=== PATIENT | female | born 1965 | race Caucasian/White ===

== ENCOUNTER → 2022-04-09 | Outpatient (CLI) | payer OTHER ==
[2022-04-09 12:59] VITALS: BP 157/89; PULSE 75; RESP 16; TEMP 98.8; BMI 27.8
--- NOTE | 2022-04-09 13:13 | P.BASOAP ---
Subjective Progress Note Date: 04/09/22 Principal diagnosis: Dysphagia, pain 56-year-old female known to our service. Patient had lap band placed 2003. She has had a few episodes over the years were the band was too tight and had to be emptied. Starting 9 days ago the patient says she over 8 and had epigastric pain and pain around her port site. This seemed to be gradually improving but then became more severe in the last few days. Patient also had some belching and feels like the band is too tight. No vomiting. No fevers. No changes today. Cover skin. Patient has had no prior revisions. Objective - Vital Signs Vital signs: Vital Signs Temp 98.8 F 04/09/22 12:54 Pulse 75 04/09/22 12:54 Resp 16 04/09/22 12:54 BP 157/89 04/09/22 12:54 Pulse Ox FiO2 Intake & Output 04/08/22 04/09/22 04/09/22 18:59 06:59 18:59 Weight 73.482 kg - Exam Abdomen: Soft, nondistended, mild tenderness at port site, no erythema Assessment/Plan (1) Morbid obesity Narrative/Plan: 56-year-old female with pain at port site and increased belching. Will empty band at this time. Following that would like to proceed with CT abdomen with contrast. Further decision regarding upper GI, EGD, or band removal will take place following that. The patient's lap band port was palpated. The site was aseptically prepped. The Torres needle was advanced into the port. A total of 0.8 ml of fluid was removed. Band is now empty. Pressure was held and a sterile dressing was applied. Plan: Date: 04/09/22 Initial Weight: 129.727 kg Initial BMI: 49.1 Current Weight: 73.482 kg Current BMI: 27.8 Type of Surgery: Adjustable Gastric Banding Total Volume in Band: Previous Volume: Volume Removed: Volume Added: Band Size:
== END ==
LOC: BARWHC3 12:40 → MERGE 12:40
PROVIDERS: ATTEND Surgery
DX: E66.01 Morbid (severe) obesity due to excess calories (principal); Z98.84 Bariatric surgery status; Z68.27 Body mass index [BMI] 27.0-27.9, adult; Z88.0 Allergy status to penicillin; Z88.2 Allergy status to sulfonamides
CPT/HCPCS: 99212

== ENCOUNTER → 2022-04-11 | Outpatient (CLI) | payer OTHER ==
--- NOTE | 2022-04-11 13:28 | CT ---
EXAMINATION TYPE: CT abdomen pelvis w con DATE OF EXAM: 04/11/2022 COMPARISON: None INDICATION: Epigastric and lower abdominal pain. DLP: 1236 mGycm, Automated exposure control for dose reduction was used. CONTRAST: 70ml mL of Isovue 300. Study performed with Oral Contrast TECHNIQUE: Axial images were obtained from above the diaphragm to the pubic rami in the axial plane a t 5 mm thick sections. Reconstructed images are reviewed on the computer in the coronal plane. FINDINGS: Limited CT sections are obtained the lung bases. The lung bases are clear. There is a moderate-size d hiatal hernia present. LAP band is present CT ABDOMEN: Liver: Normal Spleen: Normal Pancreas: Normal Adrenal glands: The adrenal glands are normal. Gallbladder: Normal Kidneys: No masses are evident. No hydronephrosis is present. Multiple small cortical renal Cysts a re present within the bilateral kidneys Delayed images were obtained through the kidneys, which bett er demonstrate the renal cysts Aorta: Vascular calcification is within the aorta. Inferior vena cava: Normal. CT PELVIS: Loops of bowel within the abdomen and pelvis are normal. There are scattered diverticuli within the s igmoid colon. There are loops of bowel which are incompletely distended or lack oral contrast limi ting their evaluation. Appendix: Not identified. No suspicious dilated tubular structure or inflammatory changes evident. Urinary bladder: Normal. Genitourinary structures: Uterus is normal. Adnexa are normal. Osseous structures: No suspicious lytic or sclerotic lesions. Some sclerosis at the anterior left sac roiliac joint. Correlate for sacroiliitis. Degenerative disc changes are present L5-S1. IMPRESSIONS: 1. Moderate-sized hiatal hernia above the lap band. Prolapse stomach should be considered. 2. Multiple bilateral renal cortex cysts. 3. Diverticulosis without acute diverticulitis.
== END | disposition home or self-care (01) ==
LOC: RADCTMAIN 07:56 → MERGE 09:30
PROVIDERS: ATTEND Surgery
DX: K44.9 Diaphragmatic hernia without obstruction or gangrene (principal); N28.1 Cyst of kidney, acquired; K57.30 Diverticulosis of large intestine without perforation or abscess without bleeding
CPT/HCPCS: 74177; Q9967

== ENCOUNTER 2022-06-10 07:50 | Day surgery (SDC) | payer OTHER ==
[~2022-06-10 07:50] MED LIST: DEXAMETHASONE SOD PHOSPHATE 4 MG/ML 1 ML VIAL IV ONE; HYDROmorphone 0.5 MG/0.5 ML SYRINGE IVP PRN; LACTATED RINGERS 1,000 ML IV SCH; MIDAZOLAM 2 MG/2 ML VIAL IV PRN; ONDANSETRON 4 MG/2 ML VIAL IVP ONE; SCOPOLAMINE 1 MG/72 HR PATCH TRANSDERM ONE
[2022-06-10] MEDS ORDERED: LACTATED RINGERS 1,000 ML IV ONE (08:30)
--- NOTE | 2022-06-10 08:45 | P.GSHP ---
History of Present Illness H&P Date: 06/10/22 Chief Complaint: Dysphagia, reflux, band intolerance 56-year-old female known to our service. She was last seen in March. Patient had her lap band placed in 2003. Patient has had progressive dysphasia and heartburn symptoms. In the office a small amount of fluid was able to be removed from the band. She is interested in band removal. Past Medical History Past Medical History: GERD/Reflux, Hypertension Additional Past Medical History / Comment(s): cysts on outside of kidney per CT. hiatal hernia/CT. arthritis back/spine and fingers History of Any Multi-Drug Resistant Organisms: None Reported Past Surgical History: Bariatric Surgery Additional Past Surgical History / Comment(s): lap band surgery 2003. thyroidectomy rt 1/2 removed. left wrist carpal tunnel surgery, right cmc (side of wrist) joint repair wrist Past Anesthesia/Blood Transfusion Reactions: No Reported Reaction Additional Past Anesthesia/Blood Transfusion Reaction / Comment(s): no blood transfusions Smoking Status: Never smoker - Past Family History Mother Family Medical History: Cancer, Hypertension Additional Family Medical History / Comment(s): lung Father Family Medical History: Coronary Artery Disease (CAD) Medications and Allergies Home Medications Medication Instructions Recorded Confirmed Type ALPRAZolam [Xanax] 1 mg PO DAILY PRN 04/09/22 06/10/22 History Cholecalciferol [Vitamin D3 (10 10 mcg PO DAILY 04/09/22 06/10/22 History Mcg = 400 Iu)] Cyanocobalamin (Vitamin B-12) 1,000 mcg PO DAILY 04/09/22 06/10/22 History [Vitamin B-12] Losartan [Cozaar] 25 mg PO DAILY 04/09/22 06/10/22 History Pantoprazole [Protonix] 40 mg PO DAILY 04/09/22 06/10/22 History Potassium Chloride 10 meq PO DAILY 04/09/22 06/10/22 History hydroCHLOROthiazide 25 mg PO DAILY 04/09/22 06/10/22 History Allergies Allergy/AdvReac Type Severity Reaction Status Date / Time Penicillins Allergy Severe Nausea & Verified 06/10/22 08:22 Vomiting Sulfa (Sulfonamide Allergy Severe Nausea & Verified 06/10/22 08:22 Antibiotics) Vomiting Surgical - Exam Vital Signs Temp Pulse Resp BP Pulse Ox 97.6 F 80 16 118/75 99 06/10/22 07:15 06/10/22 07:15 06/10/22 07:15 06/10/22 07:15 06/10/22 07:15 Physical exam: General: Well-developed, well-nourished HEENT: Normocephalic, sclerae nonicteric Abdomen: Nontender, nondistended Extremities: No edema Neuro: Alert and oriented Assessment and Plan (1) Dysphagia Narrative/Plan: 56-year-old female with indwelling LAP-BAND. Patient with Locations of the band including reflux and dysphagia despite emptying the band. Will proceed with laparoscopic lap band removal at this time. Risks of bleeding, infection, gastric and bowel injury, conversion to an open procedure, persistent reflux or dysphagia reviewed. She understands and wishes to proceed. Current Visit: Yes Status: Acute Code(s): R13.10 - DYSPHAGIA, UNSPECIFIED SNOMED Code(s): 97815269
[2022-06-10] MEDS ORDERED: MIDAZOLAM 2 MG/2 ML VIAL ONE (09:51)
[2022-06-10] MEDS ORDERED: NEOSTIGMINE 1 MG/ML 10 ML VIAL ONE (09:51)
[2022-06-10] MEDS ORDERED: GLYCOPYRROLATE 0.2 MG/ML 2 ML VIAL ONE (09:51)
[2022-06-10] MEDS ORDERED: fentaNYL (PF) 50 MCG/ML 2 ML AMP ONE (09:51)
[2022-06-10] MEDS ORDERED: PROPOFOL 10 MG/ML 20 ML VIAL IV ONE (09:51)
[2022-06-10] MEDS ORDERED: SUCCINYLCHOLINE CHLORIDE 200 MG/10 ML VIAL IV ONE (09:51)
[2022-06-10] MEDS ORDERED: LIDOCAINE 2% INJ 20 MG/ML (2 ML VIAL) ONE (09:51)
[2022-06-10] MEDS ORDERED: PHENYLEPHRINE-0.9% NACL SYG 1,000 MCG/10 ML SYRINGE ONE (09:51)
[2022-06-10] MEDS ORDERED: ROCURONIUM 10 MG/ML (5 ML VIAL) IV ONE (09:51)
[2022-06-10] MEDS ORDERED: BUPIVACAIN-EPI 0.25%-1:200,000 30 ML VIAL SQ ONE ×2 (09:56)
[2022-06-10] MEDS ORDERED: NALOXONE 0.4 MG/ML 1 ML VIAL IV PRN (11:10)
[2022-06-10 11:17] VITALS: TEMP 97.2
--- NOTE | 2022-06-10 11:23 | P.OP ---
Date of Procedure: 06/10/22 Procedure(s) Performed: PREOPERATIVE DIAGNOSIS: Band intolerance/abdominal pain/dysphagia POSTOPERATIVE DIAGNOSIS: Same PROCEDURE: Laparoscopic lap band removal SURGEON: Angelica EBL: Minimal ANESTHESIA: General COMPLICATIONS: None OPERATIVE PROCEDURE: The patient was brought and placed on the operating room table in the supine position. The patient was placed under general anesthesia at that time. The patient was then placed in lithotomy. The abdomen was prepped and draped in the usual sterile fashion. The previous port incision was localized and then incised using a scalpel. The port was easily excised using electrocautery. Entrance into the perineal cavity occurred using a 5 mm optical trocar through the old trocar entrance site. Insufflation took place to 15 mmHg. A right subxiphoid 5 mm trocar was placed. This was then removed and the medium Alan hook was used to elevate the left lobe of the liver anteriorly. An additional 5 mm trocar was placed under direct visualization in the left lateral upper quadrant. The original 5 mm trocar was switched to a 15 mm trocar. A additional 5 mm trocar was placed in the right upper quadrant under direct dilatation. There were adhesions to the band in the buccal that were lysed using both the LigaSure and electrocautery. The band was then cut using the laparoscopic rebecca. The band was then removed easily in 2 portions through the 15 mm trocar site. The stomach itself was inspected and revealed no evidence of erosion or prolapse. The trochars were removed. The fascia at the 15 mm site was closed using a [id number] 0 Vicryl stitch. The subcutaneous tissues at the port site was closed using a 3-0 Vicryl suture. The skin at all 4 incision sites were closed using 4-0 Monocryl sutures. Skin glue was then applied. DISPOSITION: Stable to recovery room
[2022-06-10 12:00] VITALS: RESP 16
[2022-06-10 12:16] VITALS: BP 111/67; PULSE 65
== END 2022-06-10 12:44 | disposition home or self-care (01) ==
LOC: OR 07:50
PROVIDERS: ATTEND Surgery
DX: K95.09 Other complications of gastric band procedure (principal); R13.10 Dysphagia, unspecified; K21.9 Gastro-esophageal reflux disease without esophagitis; I10 Essential (primary) hypertension; N28.1 Cyst of kidney, acquired; K44.9 Diaphragmatic hernia without obstruction or gangrene; M47.9 Spondylosis, unspecified; Z98.890 Other specified postprocedural states; Z98.84 Bariatric surgery status; Z90.89 Acquired absence of other organs; Z80.1 Family history of malignant neoplasm of trachea, bronchus and lung; Z82.49 Family history of ischemic heart disease and other diseases of the circulatory system; Z79.899 Other long term (current) drug therapy; Z79.811 Long term (current) use of aromatase inhibitors; Z79.1 Long term (current) use of non-steroidal anti-inflammatories (NSAID); Z88.0 Allergy status to penicillin; Z88.2 Allergy status to sulfonamides
CPT/HCPCS: 84132; 43772; J2250; J0330; J1100; J2710; J0690; J2405; J3010; J2370; J2704; J1170; J2001

== ENCOUNTER → 2022-06-18 | Outpatient (CLI) | payer OTHER ==
[2022-06-18 14:43] VITALS: BP 131/84; PULSE 92; RESP 16; TEMP 98.7; BMI 28.5
--- NOTE | 2022-06-18 15:00 | P.BASOAP ---
Subjective Progress Note Date: 06/18/22 Principal diagnosis: Morbid obesity Patient returns after recent lap band removal. Doing well at this time. No reflux, no nausea or vomiting. Patient was having some weird right-sided back pain that is now better as well. She is tolerating regular foods. Objective - Vital Signs Vital signs: Vital Signs Temp 98.7 F 06/18/22 14:41 Pulse 92 06/18/22 14:41 Resp 16 06/18/22 14:41 BP 131/84 06/18/22 14:41 Pulse Ox FiO2 Intake & Output 06/17/22 06/18/22 06/18/22 18:59 06:59 18:59 Weight 75.296 kg - Exam Abdomen: Soft, nondistended, incision clean and dry Assessment/Plan (1) Morbid obesity Narrative/Plan: Patient doing well at this time after recent band removal. Continue lifting. Monitor incision sites. Follow-up as needed. Plan: Date: 06/18/22 Initial Weight: 129.727 kg Initial BMI: 49.1 Current Weight: 75.296 kg Current BMI: 28.5 Type of Surgery: Total Volume in Band: 0 Previous Volume: Volume Removed: Volume Added: Band Size:
== END ==
LOC: BARWHC3 14:25
PROVIDERS: ATTEND Surgery
DX: E66.01 Morbid (severe) obesity due to excess calories (principal); Z68.28 Body mass index [BMI] 28.0-28.9, adult; Z88.0 Allergy status to penicillin; Z88.2 Allergy status to sulfonamides
CPT/HCPCS: 99211